=== PATIENT | female | born 1990 | race Caucasian/White ===

== ENCOUNTER 2017-12-18 20:51 | Emergency (ER) | payer OTHER, SELFPAY ==
[2017-12-18] MEDS ORDERED: Nitroglycerin 2% Ointment 1 INCH/1 GM Packet ONE (21:32)
[2017-12-18] MEDS ORDERED: Pantoprazole 40 MG VIAL ONE (21:32)
[2017-12-18] MEDS ORDERED: Ondansetron PF 4 MG/2 ML Vial ONE (21:32)
[2017-12-18] MEDS ORDERED: Sodium Chloride 0.9% 1,000 ML ONE (21:32)
--- NOTE | 2017-12-18 21:43 | RAD ---
TWO VIEWS SOFT TISSUE NECK 12/18/17 HISTORY: Patient cannot swallow, choking, sore throat irritated, possible bleeding. AP and lateral views of soft tissue neck obtained. The epiglottis is unremarkable. No evidence of prevertebral soft tissue swelling is seen. No evidence of radiopaque foreign body seen. IMPRESSION: No evidence of radiopaque foreign body seen in the soft tissues. POS: [facility]
[2017-12-18 21:48] LABS: #Basophils 0.1 thou/uL (0.0-0.2); #Eosinphils 0.1 thou/uL (0.0-0.7); #Lymphocytes 1.9 thou/uL (1.20-3.40); #Monocytes 0.5 thou/uL (0.11-0.59); #Neutrophils 5.2 thou/uL (1.40-6.50); %Basophils 0.9 % (0.0-1.0); %Eosinophils 1.3 % (0.0-10.0); %Lymphocytes 24.2 % (21.0-51.0); %Monocytes 6.5 % (0.0-10.0); %Neutrophils 67.1 % (42.0-75.0); Hemoglobin 13.2 g/dL (12.0-16.0); Mean Corpuscular HGB CONC 32.1 g/dL (32.0-36.0); Mean Corpuscular Hemoglobin 27.6 pg (27.0-31.0); Mean Corpuscular Volume 85.9 fL (78.0-98.0); Mean Platelet Volume 9.7 fL (7.4-10.4); Platelet Count 234 thou/uL (130-400); RBC Distribution Width 11.9 % (11.5-14.5); Red Blood Cell (RBC) Count 4.79 mill/uL (4.20-5.40); White Blood Cell (WBC) Count 7.8 thou/uL (4.8-10.8)
[2017-12-18 21:52] LABS: BHCG - Serum Negative (NEGATIVE); Pregs Control Bar Appear? YES (CONTROL BAR)
--- NOTE | 2017-12-18 22:03 | RAD ---
TWO VIEWS CHEST: 12/18/17 HISTORY: Patient is choking after swallowing turkey leg. PA and lateral views of the chest is obtained. The lungs are well aerated. No evidence of active intr athoracic disease seen. No evidence of effusions, pneumonia or pneumothorax seen. IMPRESSION: Normal two views chest. POS: [facility]
[2017-12-18 22:05] LABS: ALT (SGPT) 17 U/L (8-55); AST (SGOT) 21 U/L (5-34); Albumin 4.3 g/dL (3.5-5.0); Alkaline Phosphatase 45 U/L (40-150); Anion Gap 14 mmol/L (10-20); BUN (Urea Nitrogen) 8 mg/dL (7.0-18.7); Bilirubin, Total 0.2 mg/dL (0.2-1.2); Calc. Creatinine Clearance 0 mL/min (70-130); Calcium 9.3 mg/dL (7.8-10.44); Carbon Dioxide 23 mmol/L (22-29); Chloride 110 mmol/L (98-107); Estimated GFR-MDRD 80; Globulin 3.1 g/dL (2.4-3.5); Glucose 98 mg/dL (70-105); Potassium 3.8 mmol/L (3.5-5.1); Protein, Total 7.4 g/dL (6.0-8.3); Sodium 143 mmol/L (136-145)
== END 2017-12-18 22:20 | disposition home or self-care (01) ==
LOC: NAV ERS 20:51
DX: K22.2 Esophageal obstruction (principal); Z79.899 Other long term (current) drug therapy
CPT/HCPCS: 70360; 71046; 80053; 84703; 85025; 96374; 96375; C9113; J2405; J7050